=== PATIENT | female | born 1975 | race Caucasian/White ===

== ENCOUNTER → 2018-01-23 | Outpatient (CLI) | payer BC ==
[~2018-01-23] MED LIST: HSCO125 SL
--- NOTE | 2018-01-23 12:46 | Diagnostic Imaging Report ---
EXAMINATION: Pelvic ultrasound. INDICATION: Dysmenorrhea. COMPARISON: There are no prior studies available for comparison. FINDINGS: The uterus is nongravid and not enlarged measuring 8.5 x 5.0 x 4.4 cm. There is no focal mass involving the uterus, although the myometrial texture is somewhat homogeneous. The endometrial lining is not thickened measuring 3 mm. There is no focal mass involving the uterus to suggest a fibroid. Both ovaries were identified. There is good blood flow to each ovary, and there is no sign of torsion. There is no pelvic mass or free fluid collection noted. IMPRESSION: 1. There is no evidence for an acute pelvic abnormality. 2. There is no focal mass involving the uterus to suggest a fibroid, but the uterine myometrium does have somewhat of a heterogeneous appearance. Dictated by: Dictated on workstation # [id number]
--- NOTE | 2018-01-24 19:13 | Diagnostic Imaging Report ---
INDICATION: Digital mammogram bilateral screening with 3-D tomosynthesis. This is the patient's baseline study. At this time, there are no current complaints. The current study was also evaluated with a Computer Aided Detection (CAD) system. FINDINGS: The fibroglandular tissue in both breasts is heterogeneously dense. This does limit the sensitivity of this exam. There are a few benign-appearing macrocalcifications in the left breast. There is also a group of faint microcalcifications in the upper-outer aspect of the left breast approximately 7-8 cm deep to the nipple. I would recommend that a compression/magnification view of these calcifications be obtained in the CC and ML projection so that they can be better characterized. There is no primary or secondary sign of malignancy noted otherwise. IMPRESSION: Additional mammographic views of the left breast would be recommended for further study. ACR BI-RADS Category 0: Incomplete. (Needs additional imaging evaluation). Result letter will be mailed to the patient. Note: At least 10% of breast cancer is not imaged by mammography. Dictated by: Dictated on workstation # [id number]
== END ==
LOC: RAD 10:06
PROVIDERS: ATTEND Nurse Practitioner
DX: Z12.31 Encounter for screening mammogram for malignant neoplasm of breast (principal); N94.6 Dysmenorrhea, unspecified; N93.8 Other specified abnormal uterine and vaginal bleeding; N92.0 Excessive and frequent menstruation with regular cycle
CPT/HCPCS: 76830; 76856; 77067

== ENCOUNTER → 2018-02-15 | Outpatient (CLI) | payer BC ==
[~2018-02-15] MED LIST changes: +DOCU100C37 PO; +HYDR-34 PO; +IBUP-844 PO; +SIME80TA16 PO; +Zolpidem Tartrate PO
--- NOTE | 2018-02-15 18:06 | Diagnostic Imaging Report ---
INDICATION: Left breast calcifications. Patient presents for additional views. Correlation is made with prior screening mammogram from 01/23/2018. Unilateral left 2-D and 3-D diagnostic mammography was performed including magnification CC and ML views as well as conventional 90-degree lateral view. The current study was also evaluated with a Computer Aided Detection (CAD) system. FINDINGS: Coarse benign-appearing calcification in the lateral left breast is noted. Immediately adjacent to this posteriorly are several punctate calcifications. These have a fairly benign appearance. No associated soft tissue mass is seen. No other suspicious abnormalities are seen. Left axilla is unremarkable. IMPRESSION: Probably benign calcifications in the upper outer left breast posterior depth. Even so, followup left mammogram in six months is recommended to confirm stability. ACR BI-RADS Category 3: Probably benign findings. Result letter will be mailed to the patient. Note: At least 10% of breast cancer is not imaged by mammography. Dictated by: Dictated on workstation # [id number]
== END ==
LOC: RAD 12:29
PROVIDERS: ATTEND Nurse Practitioner
DX: R92.1 Mammographic calcification found on diagnostic imaging of breast (principal)

== ENCOUNTER 2018-03-22 09:47 | Outpatient (CLI) | payer BC ==
[~2018-03-22] VITALS: Ht 160 cm; Wt 80.0 kg
[~2018-03-22 09:47] MED LIST changes: -DOCU100C37 PO; -HYDR-34 PO; -IBUP-844 PO; -SIME80TA16 PO; -Zolpidem Tartrate PO
[2018-03-22 10:32] LABS: BASOPHILS % (AUTO) 1 % (0-10); EOSINOPHILS # (AUTO) 0.2 10^3/uL (0.0-0.3); EOSINOPHILS % (AUTO) 3 % (0-10); HEMATOCRIT 39 % (35-52); HEMOGLOBIN 12.9 G/DL (11.5-16.0); LYMPHOCYTES # (AUTO) 2.4 X 10^3 (1.0-4.0); LYMPHOCYTES % (AUTO) 41 % (12-44); MEAN CORPUSCULAR HEMOGLOBIN 30 PG (25-34); MEAN CORPUSCULAR HGB CONC 33 G/DL (32-36); MEAN CORPUSCULAR VOLUME 89 FL (80-99); MEAN PLATELET VOLUME 10.2 FL (7.4-10.4); MONOCYTES # (AUTO) 0.4 X 10^3 (0.0-1.0); MONOCYTES % (AUTO) 8 % (0-12); NEUTROPHILS # (AUTO) 2.8 X 10^3 (1.8-7.8); NEUTROPHILS % (AUTO) 48 % (42-75); PLATELET COUNT 301 10^3/uL (130-400); RED BLOOD COUNT 4.38 10^6/uL (4.35-5.85); RED CELL DISTRIBUTION WIDTH 13.2 % (10.0-14.5); WHITE BLOOD COUNT 5.9 10^3/uL (4.3-11.0)
== END 2018-03-22 11:37 | disposition home or self-care (01) ==
LOC: PREOP 09:47
PROVIDERS: ATTEND Obstetrics & Gynecology
DX: Z01.812 Encounter for preprocedural laboratory examination (principal); Z11.2 Encounter for screening for other bacterial diseases; N93.9 Abnormal uterine and vaginal bleeding, unspecified; D50.0 Iron deficiency anemia secondary to blood loss (chronic)
CPT/HCPCS: 36415; 85025; 86850; 86900; 86901; 87081

== ENCOUNTER 2018-03-28 08:09 | Day surgery (SDC) | payer BC ==
[~2018-03-28] VITALS: Ht 160 cm; Wt 80.0 kg
[2018-03-28 08:15] VITALS: BP 118/84
[2018-03-28] MEDS ORDERED: metroNIDAZOLE 500MG/100ML IVPB 100 ML IV ONE (08:15)
[2018-03-28] MEDS ORDERED: ceFAZolin 2 GM IV Premixed 50 ML IV ONE (08:15)
[2018-03-28] MEDS: LACTATED RINGERS 1,000 ML IV PRN ×2 (08:30→12:45)
--- OUTSIDE RECORDS SUMMARY | 2018-03-28 10:26 | XMS REPORT | Continuity of Care Document ---
Author Author [facility] Organization [facility] Address Unknown Phone Unavailable Allergies Active Description Code Type Severity Reaction Onset Reported/Identified Relationship to Patient Clinical Status Yes No Known Drug Allergies [id number] Drug Allergy Unknown N/A 05/19/2014 Medications There is no data. Problems Date Dx Coded Attending Type Code Diagnosis Diagnosed By 05/19/2014 ROSE CARVALHO, URIEL T Ot 780.60 FEVER, UNSPECIFIED 05/19/2014 ROSE CARVALHO, URIEL T Ot 787.91 DIARRHEA 05/19/2014 ROSE CARVALHO, URIEL T Ot 789.00 ABDOMINAL PAIN, UNSPECIFIED SITE 01/29/2018 QUICK, ARTURO W V BELT CURER Ot N92.0 EXCESSIVE AND FREQUENT MENSTRUATION WITH 01/29/2018 QUICK, ARTURO W V BELT CURER Ot N93.8 OTHER SPECIFIED ABNORMAL UTERINE AND VAG 01/29/2018 QUICK, ARTURO W V BELT CURER Ot N94.6 DYSMENORRHEA, UNSPECIFIED 01/29/2018 QUICK, ARTURO W V BELT CURER Ot Z12.31 ENCNTR SCREEN MAMMOGRAM FOR MALIGNANT NE 02/06/2018 QUICK, ARTURO W V BELT CURER Ot N92.0 EXCESSIVE AND FREQUENT MENSTRUATION WITH 02/06/2018 QUICK, ARTURO W V BELT CURER Ot N93.8 OTHER SPECIFIED ABNORMAL UTERINE AND VAG 02/06/2018 QUICK, ARTURO W V BELT CURER Ot N94.6 DYSMENORRHEA, UNSPECIFIED 02/06/2018 QUICK, ARTURO W V BELT CURER Ot Z12.31 ENCNTR SCREEN MAMMOGRAM FOR MALIGNANT NE 02/15/2018 QUICK, ARTURO W V BELT CURER Ot N92.0 EXCESSIVE AND FREQUENT MENSTRUATION WITH 02/15/2018 QUICK, ARTURO W V BELT CURER Ot N93.8 OTHER SPECIFIED ABNORMAL UTERINE AND VAG 02/15/2018 QUICK, ARTURO W V BELT CURER Ot N94.6 DYSMENORRHEA, UNSPECIFIED 02/15/2018 QUICK, ARTURO W V BELT CURER Ot Z12.31 ENCNTR SCREEN MAMMOGRAM FOR MALIGNANT NE 02/18/2018 ARTURO PAULAP Ot R92.1 MAMMOGRAPHIC CALCIFCN FOUND ON DIAGNOSTI 02/21/2018 ARTURO PAULA Ot R92.1 MAMMOGRAPHIC CALCIFCN FOUND ON DIAGNOSTI 02/28/2018 ARTURO PAULA Ot R92.1 MAMMOGRAPHIC CALCIFCN FOUND ON DIAGNOSTI Procedures There is no data. Results There is no data. Encounters ACCT No. Visit Date/Time Discharge Status Pt. Type Provider Facility Loc./Unit Complaint [id number] 02/15/2018 12:29:00 02/15/2018 23:59:59 CLS Outpatient CHAIARTURO BALTA [facility] RAD ABN MAMMO [id number] 01/23/2018 10:06:00 01/23/2018 23:59:59 CLS Outpatient CHAILUCASNeftaly GIFFORD [facility] RAD MENORRHAGIA [id number] 05/19/2014 00:46:00 05/19/2014 03:14:00 DIS Emergency ROSE CARVALHO, URIEL Varela [facility] ER FEVER,DIARRHEA,ABD PAIN [id number] 03/28/2018 09:15:00 PEN Preadmit ARMAND ESTRADA DO [facility] AUB,CHRONIC BLOOD LOSS ANEMIA
[2018-03-28] MEDS ORDERED: BUPIVACAINE 0.25% 30 ML (SENSORCAINE) VIAL ONE (10:44)
--- NOTE | 2018-03-28 11:38 | Progress Note-Pre Operative ---
Pre-Operative Progress Note H&P Reviewed The H&P was reviewed, patient examined and no changes noted. Date Seen by Provider: Mar 28, 2018 Time Seen by Provider: 11:35 Date H&P Reviewed: Mar 28, 2018 Time H&P Reviewed: 11:40 Pre-Operative Diagnosis: AUB, Chronic blood loss anemia ARMAND ESTRADA DO Mar 28, 2018 11:38 am
[2018-03-28] MEDS ORDERED: ROCURONIUM 10 MG/ML 5 ML SYRINGE IV ONE (11:46)
[2018-03-28] MEDS ORDERED: ONDANSETRON 4 MG/2 ML (SDV) Z0FRAN ONE (11:46)
[2018-03-28] MEDS ORDERED: proPOfol 200 MG/20 ML (DIPRIVAN) VIAL IV ONE (11:46)
[2018-03-28] MEDS ORDERED: LACTATED RINGERS 1,000 ML IV ONE (11:46)
[2018-03-28] MEDS ORDERED: SUCCINYLCHOLINE INJ 100 MG/5 ML SYR ONE (11:46)
[2018-03-28] MEDS ORDERED: LIDOCAINE PF 2% 5 ML (XYLOCAINE) VIAL ONE (11:46)
[2018-03-28] MEDS ORDERED: fentaNYL INJECTION 100 MCG/2 ML AMP ONE ×2 (11:47→12:49)
[2018-03-28] MEDS ORDERED: MIDAZOLAM 2 MG/2 ML (VERSED) VIAL ONE (11:47)
[2018-03-28] MEDS ORDERED: SEVOFLURANE (ULTANE) 15 ML INHAL SOLN ONE ×6 (11:50→14:04)
--- NOTE | 2018-03-28 12:21 | Discharge Inst-Women's Service ---
Discharge Inst-Women's Serv Depart Medication/Instructions New, Converted or Re-Newed RX: RX on Chart Consults/Follow Up Additional Follow Up: Yes Orders/Referrals Dr. Brandt in 7-10 days and in 8 weeks Activity Activity: Activity as Tolerated Driving Instructions: No Driving for 1 Week NO SMOKING: NO SMOKING Nothing Inside Vagina: No Douching, No [place], No Tampons Diet Discharge Diet: No Restrictions Symptoms to Report to : Bleeding Excessive, Pain Increased, Fever Over 101 Degrees F, Vaginal Bleeding Increase, Questions/Concerns For Any Problems or Questions: Contact Your Physician Skin/Wound Care Infection Signs and Symptoms: Increased Redness, Foul Odor of Wound, Increased Drainage, Skin Itchy or Has a Rash, Increased Swelling, Temperature Above 101 F Operative Area Clean and Dry: Keep Incision Clean/Dry Stitches/Guera/Dermabond: Dermabond, Care of Stitches Bathing Instructions: ARMAND Hunter DO Mar 28, 2018 12:21 pm
[2018-03-28] MEDS ORDERED: DOCU100C37 PO (12:24)
[2018-03-28] MEDS ORDERED: HYDR-34 PO (12:24)
[2018-03-28] MEDS ORDERED: SIME80TA16 PO (12:24)
[2018-03-28] MEDS ORDERED: IBUP-844 PO (12:24)
[2018-03-28] MEDS ORDERED: HYDROcodone/APAP 7.5 MG/325 MG (LORTAB, LORCET PLUS) TABLET PO PRN (12:30)
[2018-03-28] MEDS ORDERED: CHLORASEPTIC LOZENGE MM PRN (12:30)
[2018-03-28] MEDS ORDERED: ZOLPIDEM 5 MG (AMBIEN) TAB PO PRN (12:30)
[2018-03-28] MEDS ORDERED: ONDANSETRON 4 MG/2 ML (SDV) Z0FRAN IV PRN (12:30)
[2018-03-28] MEDS ORDERED: ANTACID SUSP 30 ML UDC (MYLANTA) PO PRN (12:30)
[2018-03-28] MEDS ORDERED: NEOSTIGMINE 1 MG/ML 5 ML SYRINGE ONE (13:52)
[2018-03-28] MEDS ORDERED: GLYCOPYRROLATE 0.2 MG/ML (ROBINUL) 2 ML VIAL ONE (13:52)
[2018-03-28] MEDS ORDERED: morphine INJ 10 MG/ML 1ML (SYR OR VIAL) ONE (13:54)
[2018-03-28] MEDS ORDERED: KETOROLAC 30 MG/ML VIAL ONE (13:55)
[2018-03-28] MEDS ORDERED: ONDANSETRON 4 MG/2 ML (SDV) Z0FRAN IVP PRN (14:15)
[2018-03-28] MEDS ORDERED: HYDROmorphone 1 MG/ML (DILAUDID) 1 ML SYRINGE IV PRN (14:15)
[2018-03-28] MEDS: KETOROLAC 30 MG/ML VIAL IV PRN ×2 (14:17→19:39)
[2018-03-28] MEDS: morphine INJ 10 MG/ML 1ML (SYR OR VIAL) IVP PRN ×2 (14:18→14:37)
[2018-03-28] MEDS: LACTATED RINGERS 1,000 ML IV SCH ×2 (15:14→19:38)
[2018-03-28 15:20] VITALS: BP 101/63
[2018-03-28] MEDS: HYDROmorphone 1 MG/ML (DILAUDID) 1 ML SYRINGE IV PRN ×2 (15:43→21:35)
[2018-03-28] MEDS ORDERED: FUROSEMIDE 40 MG/4 ML INJ (LASIX) IVP ONE (17:15)
[2018-03-28] MEDS ORDERED: FUROSEMIDE 40 MG/4 ML INJ (LASIX) ONE (17:17)
[2018-03-28] MEDS: DOCUSATE SODIUM 100 MG (COLACE) CAP PO PRN (19:39)
[2018-03-28 21:45] VITALS: BP 92/62
[2018-03-28 23:55] VITALS: BP 103/55
[2018-03-29] MEDS: LACTATED RINGERS 1,000 ML IV SCH (03:30)
[2018-03-29] MEDS ORDERED: IBUPROFEN 600 MG (MOTRIN) TAB PO PRN (05:00)
[2018-03-29 05:52] VITALS: BP 105/68
[2018-03-29] MEDS: KETOROLAC 30 MG/ML VIAL IV PRN (05:53)
[2018-03-29 08:00] VITALS: BP 122/75
[2018-03-29] MEDS: SIMETHICONE 80 MG (MYLICON) CHEW PO PRN ×2 (08:50→13:07)
[2018-03-29] MEDS: DOCUSATE SODIUM 100 MG (COLACE) CAP PO PRN (08:50)
--- NOTE | 2018-03-29 09:10 | Anesthesia-General Post-Op ---
General Patient Condition Mental Status/LOC: Same as Preop Cardiovascular: Satisfactory Nausea/Vomiting: Absent Respiratory: Satisfactory Pain: Controlled Complications: Absent Post Op Complications Complications None Follow Up Care/Instructions Patient Instructions None needed. Anesthesia/Patient Condition Patient Condition Patient is doing well, no complaints, stable vital signs, no apparent adverse anesthesia problems. No complications reported per nursing. NEGRO SNEED CRNA Mar 29, 2018 09:10
[2018-03-29] MEDS ORDERED: Zolpidem Tartrate PO (10:00)
[2018-03-29 12:00] VITALS: BP 120/72
[2018-03-29 13:55] VITALS: BP 120/72
--- NOTE | 2018-04-02 08:31 | OPERATIVE REPORT ---
DATE OF SERVICE: 03/22/2018 PREOPERATIVE DIAGNOSES: 1. A 42-year-old female with abnormal uterine bleeding. 2. Recurrent episodes of chronic blood loss anemia. POSTOPERATIVE DIAGNOSES: 1. A 42-year-old female with abnormal uterine bleeding. 2. Recurrent episodes of chronic blood loss anemia. PROCEDURE: Robotic-assisted total laparoscopic hysterectomy with bilateral salpingectomy. SURGEON: Dean Estrada DO FARM MANAGER: BALTA Guzman ANESTHESIA: General endotracheal. ESTIMATED BLOOD LOSS: Minimal. URINE OUTPUT: 30 mL, clear at the end of the procedure. FLUIDS: 1600 mL lactated Ringer solution. FINDINGS: A mildly enlarged uterus approximately 10 to 12 week size, grossly normal appearing fallopian tubes that had been previously ligated. Grossly normal appearing bilateral ovaries. SPECIMEN SENT: Uterus and bilateral fallopian tubes. INDICATION FOR PROCEDURE: This 42-year-old female, who has a consultation in my office for recurrent episodes of chronic blood loss anemia requiring iron transfusions in the past and blood transfusions in the past. The patient reports abnormal bleeding that she has been dealing with for the past 3 to 5 years. They have gotten substantially worse and she has tried multiple hormonal therapies without any kind of improvement. She has also underwent D and C in the past without any type of improvement. The patient is frustrated and wants to proceed with more definitive measures as she does not see the need for her uterus anymore. Hysterectomy was discussed with the patient in detail including risk of bleeding, infection, damage to surrounding structures including, but not limited to bowel, bladder, ureter, kidneys, pre and postoperative expectations, recovery timeframe, as well as possibility for reoperation if any damage should occur during her surgery. The patient demonstrates understanding of all these risks up to and including the risk of . After everything was discussed with the patient, consent was obtained and all of her questions were answered and she was then taken to the operating room. OPERATIVE REPORT IN DETAIL: Once in the operating room, general anesthesia was found to be adequate, placed in the dorsal lithotomy position, prepped and draped in normal sterile fashion. Timeout was performed. A Nieves catheter was placed using sterile technique. A weighted speculum was inserted into the patient's vagina. A right angle retractor was used to visualize the cervix, which was grasped at 12 o'clock position using a long Allis clamp and placing 0 Vicryl suture in the anterior lip of the cervix and used as my retraction point, removed the Allis clamp. I then sounded the uterine cavity depth, it was found to be 10 cm. I selected 10 cm Brenda uterine manipulator tip and a 4 cm colpotomy ring, advanced this into the uterus to the point of balloon and advanced the colpotomy ring around the vaginal fornix, which offers excellent manipulation on bimanual. I then removed all the other instruments from the patient's vagina, performed a change of gloves, taken my attention to the abdomen where infraumbilically, I infiltrated this area using 0.25% Marcaine, making 8 mm incision and directed the Veress needle through the incision until the intraperitoneal placement was confirmed using a saline drop test. I then proceeded with insufflation using CO2 gas and opening pressure of 5 mmHg was noted. I proceeded to maximum pressure of 15 mmHg, at which point, I removed the Veress needle and introduced a blunt 8 mm da Sharath camera trocar. Once this was in place, I am able to confirm intraperitoneal placement as well as no damage upon entry. I then had the patient placed in steep Trendelenburg. I am able to visualize all my findings as demonstrated above. I then placed two lateral trocars approximately 8 to 10 cm lateral to my infraumbilical trocar and these were both 8 mm incision. The skin is infiltrated using 0.25% Marcaine, 8 mm incisions were made using the knife and the trocars were placed under direct visualization of the laparoscope. Once these were in place and bringing the da Sharath robot and docked in the appropriate fashion, placing the vessel sealer in my left hand and monopolar ashley in the right hand, I performed the following dissection bilaterally. I started at the uteroovarian ligament, bipolar cauterized and transected using the vessel sealer. I then created a window in the mesosalpinx using the monopolar ashley and took this dissection down the mesosalpinx amputating the fallopian tube from its blood supply. I then bipolar cauterized the round ligament and transected using the vessel sealer. I then am able to grasp the entire broad ligament, bipolar cauterized and transected using the vessel sealer down to the level of the lower uterine segment, at which point, I the anterior and posterior leaflets of the broad ligament. The anterior leaflet dissection was taken down to the anterior vaginal fornix. The posterior leaflet was taken down to the posterior vaginal fornix, which allows me to skeletonize the uterine vessels laterally. I then bipolar cauterized and transected the uterine vessels using the vessel sealer. I created a colpotomy at 12 o'clock using the monopolar ashley and took this circumferentially around the vaginal fornix amputating the cervix from the vagina. The cervix, uterus and bilateral fallopian tubes were then removed through the vagina. I then closed the lateral vaginal apices of the vaginal cuff using 2-0 Vicryl suture in a wiutbc-sh-ogawi fashion, colposuspending them to the uterosacral ligament. After which, I closed the remainder of the vaginal cuff using 2-0 V-Loc in running fashion. There was no active bleeding noted from any of my dissection planes. I then undocked the da Sharath robot, proceeded with the remainder of the case laparoscopically. I copiously irrigated the pelvis using normal saline. Once again, there was active bleeding noted from any of my dissection planes. I then placed FloSeal hemostatic agent over all my planes of dissection. Then, I had the patient taken out of steep Trendelenburg. I removed the lateral trocars under direct visualization of the laparoscope. The infraumbilical trocar is used to release insufflation and introduced 10 mL of 0.25% Marcaine into the peritoneal cavity for postoperative pain management. I then removed this trocar as well. The skin was then reapproximated using 4-0 Monocryl in interrupted subcuticular stitches. Dermabond was applied. Incisions and Band-Aids are placed over these. Nieves catheter was left in place. The patient tolerated the procedure well and sent to recovery in stable condition. Lap and sponge count was correct at the end of the procedure. Instrument counts were correct as well. Two grams of Ancef, 500 mg of Flagyl were given preoperatively for infection prophylaxis. Job ID: [id number] DocumentID: [id number] Dictated Date: 03/28/2018 13:59:25 Obstetrician Gynecologist Date: 03/28/2018 19:40:48 Dictated By: DEAN ESTRADA DO <Dictated by DEAN ESTRADA DO> <Electronically signed by DEAN ESTRADA DO> 03/29/18 0902
== END 2018-03-29 13:55 | disposition home or self-care (01) ==
LOC: SDC 08:09 → WS 15:05 → SDC 03-29 13:55
PROVIDERS: ATTEND Obstetrics & Gynecology
DX: N93.9 Abnormal uterine and vaginal bleeding, unspecified (principal); N72 Inflammatory disease of cervix uteri; N80.0 Endometriosis of uterus; D25.1 Intramural leiomyoma of uterus; D25.2 Subserosal leiomyoma of uterus; N83.8 Other noninflammatory disorders of ovary, fallopian tube and broad ligament; D50.0 Iron deficiency anemia secondary to blood loss (chronic)
CPT/HCPCS: 36415; 84703; 86850; 86900; 86901; 94664

== ENCOUNTER 2020-02-21 21:49 | Emergency (ER) | payer SELFPAY ==
[~2020-02-21] VITALS: Ht 165.1 cm; Wt 74.5 kg
[~2020-02-21 21:49] MED LIST changes: +DOCU100C37 PO; +HYDR-34 PO; +IBUP-844 PO; +SIME80TA16 PO; +Zolpidem Tartrate PO
[2020-02-21 22:00] VITALS: BP 160/90
--- NOTE | 2020-02-21 22:07 | ED Upper Extremity ---
General Chief Complaint: Upper Extremity Stated Complaint: RIGHT FINGER INJURY Nursing Triage Note: pt states she smashed finger in between car door and garage post 2 days ago, no swelling, full rom Nursing Sepsis Screen: No Definite Risk Source: patient History of Present Illness Date Seen by Provider: Feb 21, 2020 Time Seen by Provider: 22:06 Initial Comments smashed her finger in a car door 2 days ago. some pain, swelling and bruising. Able to move it without difficulty. no deformity. no other injury or compliant Allergies and Home Medications Allergies Coded Allergies: No Known Drug Allergies (Unverified , 03/22/18) Home Medications Docusate Sodium 100 Mg Capsule, 100 MG PO BID PRN for CONSTIPATION-1ST LINE Prescribed by: ARMAND ESTRADA on 03/28/18 1224 Hydrocodone Bit/Acetaminophen 1 Ea Tablet, 2 EA PO Q6H PRN for Pain-See Instructions Prescribed by: ARMAND ESTRADA on 03/28/18 1224 Ibuprofen 600 Mg Tablet, 600 MG PO Q6H PRN for PAIN-MODERATE Prescribed by: ARMAND ESTRADA on 03/28/18 1224 Simethicone 80 Mg Tab.chew, 40 MG PO TID PRN for INDIGESTION 2ND LINE Prescribed by: ARMAND ESTRADA on 03/28/18 1224 [Zolpidem Tartrate] 5 MG TAB, 5 MG PO HS PRN for INSOMNIA Prescribed by: ARMAND ESTRADA on 03/29/18 1000 Patient Home Medication List Home Medication List Reviewed: Yes Review of Systems Constitutional: no symptoms reported Musculoskeletal: see HPI, other (R little finger pain) Skin: change in color; No rash Psychiatric/Neurological: Denies Numbness, Denies Paresthesia, Denies Weakness Past Aqgovqn-Frkfpy-Yxvbkc Hx Past Med/Social Hx: Reviewed Nursing Past Med/Soc Hx Patient Social History Alcohol Use: Denies Use Recreational Drug Use: No Smoking Status: Never a Smoker 2nd Hand Smoke Exposure: No Recent Foreign Travel: No Contact w/Someone Who Travel: No Recent Infectious Disease Expo: No Recent Hopitalizations: No Physical Abuse: No Sexual Abuse: No Mistreated: No Fear: No Immunizations Up To Date Tetanus Booster (TDap): Unknown Seasonal Allergies Seasonal Allergies: Yes Past Medical History Surgeries: Yes Gallbladder, Hysterectomy, Tubal Ligation Respiratory: No Cardiac: No Neurological: No Reproductive Disorders: Yes (AUB) Female Reproductive Disorders: Menstrual Problems GEAR HOBBER History: Tubal Ligation Sexually Transmitted Disease: No HIV/AIDS: No Genitourinary: No Gastrointestinal: Yes Chronic Diarrhea Musculoskeletal: No Endocrine: No HEENT: No Loss of Vision: Bilateral Cancer: No Psychosocial: No Integumentary: No Blood Disorders: No Adverse Reaction/Blood Tranf: No (N/A) Physical Exam Vital Signs Vital Signs - First Documented 02/21/20 22:00 Temp 36.0 Pulse 82 Resp 18 B/P (MAP) 160/90 (113) Pulse Ox 97 O2 Delivery Room Air Capillary Refill : Less Than 3 Seconds Height, Weight, BMI Height: 5'3.00" Weight: 176lbs. 7.0oz. 80.310500cg; 27.00 BMI Method: General Appearance: WD/WN, no apparent distress Hand: normal ROM, Right, soft tissue tenderness Little finger R hand w full ROM , mild edema and small echymosis. NVI. soft tissue tenderness- mild Progress/Results/Core Measures Results/Orders Vital Signs/I&O 02/21/20 22:00 Temp 36.0 Pulse 82 Resp 18 B/P (MAP) 160/90 (113) Pulse Ox 97 O2 Delivery Room Air Blood Pressure Mean: 113 Departure Impression Primary Impression: Finger contusion Qualified Codes: S60.051A - Contusion of right little finger without damage to nail, initial encounter Disposition: 01 HOME, SELF-CARE Condition: Stable Departure-Patient Inst. Referrals: NO,LOCAL PHYSICIAN (PCP/Family) Primary Care Physician Patient Instructions: KURT Butler DC, DO Feb 21, 2020 22:07
== END 2020-02-21 22:15 | disposition home or self-care (01) ==
LOC: EDUNIT# 21:49 → ER FS 21:53
DX: S60.051A Contusion of right little finger without damage to nail, initial encounter (principal); W23.0XXA Caught, crushed, jammed, or pinched between moving objects, initial encounter
CPT/HCPCS: 29130